=== PATIENT | female | born 1980 | race Caucasian/White ===

== ENCOUNTER 2016-10-27 06:09 | Emergency (ER) | payer OTHER ==
[~2016-10-27] VITALS: Ht 170.2 cm; Wt 74.8 kg
[~2016-10-27 06:09] MED LIST: BACTRIM DS TAB1 EACH PO; DOXYCYCLINE 10100 MG PO; KEFLEX500 MG PO; NOHOMEMEDICATIONS; NORCO 5-325 TA1 EACH PO; VENTOLIN HFA 1818 GM INH; ZOFRAN ODT4 MG PO
[2016-10-27 06:14] VITALS: BP 122/70
[2016-10-27] MEDS ORDERED: TORADOL 10 MG T10 MG PO (06:43)
== END 2016-10-27 07:04 | disposition home or self-care (01) ==
LOC: ER 06:09
DX: G56.03 Carpal tunnel syndrome, bilateral upper limbs (principal); J45.909 Unspecified asthma, uncomplicated; F17.210 Nicotine dependence, cigarettes, uncomplicated; Z90.49 Acquired absence of other specified parts of digestive tract

== ENCOUNTER 2018-05-06 23:32 | Emergency (ER) | payer OTHER ==
[~2018-05-06] VITALS: Ht 172.7 cm; Wt 72.6 kg
[~2018-05-06 23:32] MED LIST changes: +TORADOL 10 MG T10 MG PO
[2018-05-07 00:53] VITALS: BP 112/79
[2018-05-08] MEDS ORDERED: VIVLODEX10 MG PO (13:36)
[2018-05-08] MEDS ORDERED: ATIVAN0.5 MG PO (14:56)
== END 2018-05-07 01:00 ==
LOC: ER 23:32
DX: F41.9 Anxiety disorder, unspecified (principal); L53.9 Erythematous condition, unspecified; F17.210 Nicotine dependence, cigarettes, uncomplicated; J45.909 Unspecified asthma, uncomplicated; Z90.49 Acquired absence of other specified parts of digestive tract

== ENCOUNTER 2018-05-08 13:29 | Emergency (ER) | payer OTHER ==
[~2018-05-08] VITALS: Ht 170.2 cm; Wt 71.7 kg
[2018-05-08] MEDS ORDERED: VIVLODEX10 MG PO (13:36)
[2018-05-08] MEDS ORDERED: ATIVAN0.5 MG PO (14:56)
[2018-05-08 15:20] VITALS: BP 128/79
== END 2018-05-08 15:05 | disposition home or self-care (01) ==
LOC: ER 13:29
DX: F41.0 Panic disorder [episodic paroxysmal anxiety] (principal); J45.909 Unspecified asthma, uncomplicated; F17.210 Nicotine dependence, cigarettes, uncomplicated; Z90.49 Acquired absence of other specified parts of digestive tract

== ENCOUNTER 2019-11-16 18:18 | Emergency (ER) | payer OTHER ==
[~2019-11-16] VITALS: Ht 172.7 cm; Wt 68.0 kg
[~2019-11-16 18:18] MED LIST changes: +ATIVAN0.5 MG PO; +VIVLODEX10 MG PO
[2019-11-16] MEDS ORDERED: EPIPEN 2-P0.3 MG/0.3 IM (20:02)
[2019-11-16] MEDS ORDERED: PREDNISONE50 MG PO (20:02)
[2019-11-16 20:34] VITALS: BP 117/77
== END 2019-11-16 20:37 | disposition home or self-care (01) ==
LOC: ER 18:18
DX: T78.1XXA Other adverse food reactions, not elsewhere classified, initial encounter (principal); L50.9 Urticaria, unspecified; J45.909 Unspecified asthma, uncomplicated; F17.210 Nicotine dependence, cigarettes, uncomplicated; Z90.49 Acquired absence of other specified parts of digestive tract; Z79.899 Other long term (current) drug therapy; Z88.5 Allergy status to narcotic agent; Z91.013 Allergy to seafood; Y92.89 Other specified places as the place of occurrence of the external cause